=== PATIENT | male | born 1990 | race Caucasian/White ===

== ENCOUNTER 2017-06-01 02:21 | Emergency (ER) | payer SELFPAY ==
[~2017-06-01] VITALS: Ht 188 cm; Wt 109.8 kg
[~2017-06-01 02:21] MED LIST: ALBU8.5H2 IH; CYCL10TA9 PO; IBUP800T26 PO; MELO7.5T46 PO; PRM25T PO; RNT150T PO
[2017-06-01] MEDS ORDERED: TETANUS,DIPTH,PERTUSS P/F (BOOSTRIX) 0.5 ML VIAL IM ONE (02:30)
[2017-06-01] MEDS ORDERED: LIDOCAINE 1% INJ 20 ML (XYLOCAINE) VIAL INJ ONE (02:30)
--- NOTE | 2017-06-01 02:36 | ED Upper Extremity ---
General Stated Complaint: LAC R INDEX FINGER Source: patient, family Exam Limitations: no limitations History of Present Illness Time seen by provider: 02:28 Initial Comments Patient presents to ER by private conveyance with his family with a chief complaint of a laceration to his right index finger pad just prior to arrival. He says he was up going to [employer] some fajitas and cutting up the chicken when he sliced we using the kitchen knife in daily pad of his finger and it started bleeding profusely. He couldn't get the bleeding under control till after arrival to the ER. He has not taken any medications for this. He says the pain is not bad at this time. He has no nausea fevers chills or vomiting. He has had a tetanus shot about 3 years ago. No other significant medical history at this time. Allergies and Home Medications Allergies Coded Allergies: Latex (Verified Allergy, Mild, 04/28/12) Home Medications Cyclobenzaprine Hcl 10 Mg Tablet, 1 EACH PO Q8HR PRN for SPASMS, #15 Prescribed by: HERNANDO FIERRO on 02/07/14 1920 Ibuprofen 800 Mg Tablet, 800 MG PO Q6H PRN for PAIN, #20 Prescribed by: HERNANDO FIERRO on 02/07/14 1920 Meloxicam 7.5 Mg Tablet, 7.5 MG PO DAILY, #30 Prescribed by: AMERICA HOLLAND on 08/16/16 1353 Promethazine Hcl 25 Mg Tablet, 1 TAB PO QID, #0 (Reported) Constitutional: No chills, No diaphoresis, No fever, No malaise Respiratory: No cough, No short of breath Cardiovascular: No chest pain, No palpitations Gastrointestinal: No constipation, No diarrhea, No nausea Genitourinary: No discharge, No dysuria Musculoskeletal: No back pain, No joint pain Skin: see HPI Psychiatric/Neurological: Denies Numbness, Denies Paresthesia Past Phhhvzo-[id number] Hx Patient Social History Alcohol Use: Denies Use Recreational Drug Use: Yes (history of marijuana use) Smoking Status: Current Everyday Smoker Type Used: Cigarettes (1 ppd) Recent Foreign Travel: No Contact w/Someone Who Travel: No Recent Hopitalizations: No Immunizations Up To Date Tetanus Booster (TDap): Less than 5yrs Seasonal Allergies Seasonal Allergies: No Physical Exam Vital Signs Capillary Refill : General Appearance: WD/WN, no apparent distress HEENT: PERRL/EOMI, pharynx normal Cardiovascular: normal peripheral pulses, regular rate, rhythm, no edema Wrist: Yes normal inspection, Yes non-tender, Yes no evidence of injury Hand: Right (distal phalangeal he 1 cm curvilinear laceration to the palmar pad of the second finger.) Neurologic/Tendon: normal sensation, normal motor functions, normal tendon functions, responds to pain Neurologic/Psychiatric: no motor/sensory deficits, alert, normal mood/affect, oriented x 3 Skin: normal color, warm/dry Laceration Repair : Wound Location: Upper Extremities (right hand second digit distal fingertip) Wound Length (cm): 2 Wound's Depth, Shape: linear, sub Q Wound Explored: clean Irrigated w/ Saline (ccs): 10 Betadine Prep?: Yes Anesthesia: 1% Lidocaine Volume Anesthetic (ccs): 5 Wound Debrided: moderate Suture: Ethlion Suture Size: 4-0 Number of Sutures: 4 Progress 1% lidocaine was using a ring block fashion of the second digit of his right hand. Small amount was infiltrated in the wound and also used to irrigate the wound. Once the patient was ascertained to be numb we then treated small amount of skin that was redundant away and placed 4 interrupted simple sutures across the curvilinear wound approximating it and causing hemostasis to occur. Patient tolerated procedure very well. Progress/Results/Core Measures Results/Orders My Orders Orders - CLEVELAND HURLEY Pertuss(Acell),Tet Adult (Boostrix (06/01/17 02:30) Lidocaine 1% Injection (Xylocaine 1% Inj (06/01/17 02:30) Departure Impression Impression: Primary Impression: Finger laceration Qualified Codes: S61.210A - Laceration without foreign body of right index finger without damage to nail, initial encounter Disposition: 01 HOME, SELF-CARE Condition: Improved Departure-Patient Inst. Decision time for Depature: 02:58 Referrals: NO,LOCAL PHYSICIAN (PCP/Family) Primary Care Physician Patient Instructions: Laceration Repair With Stitches (DC) Add. Discharge Instructions: Clean the wound with regular soap and water only. Apply a small amount of Vaseline to keep the skin moist but he feels better. Follow up in 5-7 days here at the ER or with her primary care physician to have the stitches removed. If he started having fever, redness, pain increasing, swelling increasing, nausea he should return to the ER or your primary care physician. Take the antibiotics as prescribed to completion. Tylenol or Motrin are useful for pain as well as an ice pack directly over the site if it is too painful. Keep the hand elevated above the level of your heart if it becomes swollen. Scripts Sulfamethoxazole/Trimethoprim (Bactrim Ds Tablet) 1 Each Tablet 1 EACH PO BID for 7 Days, #14 TAB 0 Refills Prov: CLEVELAND HURLEY 06/01/17 CLEVELAND HURLEY Jun 01, 2017 02:36
[2017-06-01] MEDS ORDERED: SULF1TAB35 PO (02:37)
[2017-06-01 03:01] VITALS: BP 131/104
== END 2017-06-01 03:01 | disposition home or self-care (01) ==
LOC: EDUNIT# 02:21 → ER 02:24
DX: S61.210A Laceration without foreign body of right index finger without damage to nail, initial encounter (principal); F17.210 Nicotine dependence, cigarettes, uncomplicated; Z23 Encounter for immunization; W26.0XXA Contact with knife, initial encounter
CPT/HCPCS: 64450; 90471; 90715